=== PATIENT | male | born 1995 | race Caucasian/White ===

== ENCOUNTER → 2020-09-17 19:17 | Outpatient (CLI) | payer SELFPAY ==
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
== END ==
PROVIDERS: Referring Provider Physical Medicine & Rehabilitation; Visit Provider Physical Medicine & Rehabilitation
DX: S49.92XA Unspecified injury of left shoulder and upper arm, initial encounter (principal); Y93.23 Activity, snow (alpine) (downhill) skiing, snowboarding, sledding, tobogganing and snow tubing
CPT/HCPCS: 73030